=== PATIENT | male | born 1965 | race African-American/Black ===

== ENCOUNTER 2017-01-28 23:06 | Emergency (ER) | payer OTHER ==
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
== END 2017-01-29 00:13 | disposition home or self-care (01) ==
LOC: CED 23:06
DX: S16.1XXA Strain of muscle, fascia and tendon at neck level, initial encounter (principal); F17.210 Nicotine dependence, cigarettes, uncomplicated; V49.40XA Driver injured in collision with unspecified motor vehicles in traffic accident, initial encounter
CPT/HCPCS: 72040; 99283